=== PATIENT | male | born 1990 ===

== ENCOUNTER 2023-05-26 15:57 | Emergency (ER) | payer OTHER ==
[2023-05-26 16:05] VITALS: BP 112/65; PULSE 79; RESP 20; TEMP 98; BMI 27.2
[2023-05-26] MEDS ORDERED: KETOROLAC TROMETHAMINE 30 MG/1 ML VIAL IVPUSH ONE (16:32)
[2023-05-26] MEDS ORDERED: ACETAMINOPHEN 500 MG TABLET (FP) PO ONE (16:32)
[2023-05-26] MEDS ORDERED: KETOROLAC TROMETHAMINE 30 MG/1 ML VIAL ONE (16:35)
[2023-05-26] MEDS ORDERED: ACETAMINOPHEN 500 MG TABLET (FP) ONE (16:35)
== END 2023-05-26 17:02 | disposition home or self-care (01) ==
LOC: JERFT 15:57
PROC: 3E0333Z Introduction of Anti-inflammatory into Peripheral Vein, Percutaneous Approach (ICD-10-PCS; principal; 2023-05-26)
DX: M54.6 Pain in thoracic spine (principal); S29.012A Strain of muscle and tendon of back wall of thorax, initial encounter; X08.8XXA Exposure to other specified smoke, fire and flames, initial encounter; Y99.0 Civilian activity done for income or pay
CPT/HCPCS: 99284-25